=== PATIENT | male | born 1980 | race Caucasian/White ===

== ENCOUNTER 2018-09-26 16:30 | Emergency (ER) ==
[~2018-09-26] VITALS: Ht 170.2 cm; Wt 65.8 kg
[2018-09-26 16:54] VITALS: BP 112/73
--- NOTE | 2018-09-26 17:00 | NUR ---
[id number], came to er c/o INTERMITTENT HEADACHE FOR THE PAST 3 DAYS. RR is even and unlabored with nad noted. skin is warm and dry. DIANNA Cameron at [facility] for eval.
== END 2018-09-26 18:37 | disposition home or self-care (01) ==
LOC: ER 16:34
DX: G43.909 Migraine, unspecified, not intractable, without status migrainosus (principal)
CPT/HCPCS: 70450-TC